=== PATIENT | female | born 1970 | race Caucasian/White ===

== ENCOUNTER 2017-02-24 17:58 | Emergency (ER) | payer OTHER ==
[2017-02-24 18:28] VITALS: TEMP 97
[2017-02-24 20:13] LABS: Basophils % (A) 1 %; CH 32.5; CHCM 33.4; Eosinophils # (A) 0.2 k/uL (0-0.7); Eosinophils % (A) 3 %; HCT 41.6 % (34.0-46.0); HGB 14.1 gm/dL (11.4-16.0); Luc # (Auto) 0.22; Luc % (Auto) 3; Lymphocytes # (A) 2.9 k/uL (1.0-4.8); Lymphocytes % (A) 40 %; MCH 33.3 pg (25.0-35.0); MCV 97.8 fL (80.0-100.0); Mean Platelet Volume 6.9; Monocytes # (A) 0.3 k/uL (0-1.0); Monocytes % (A) 4 %; Neutrophils # (A) 3.7 k/uL (1.3-7.7); Neutrophils % (A) 51 %; RBC 4.25 m/uL (3.80-5.40); RDW 12.6 % (11.5-15.5); WBC 7.4 k/uL (3.8-10.6)
--- NOTE | 2017-02-24 20:18 | XR ---
EXAMINATION TYPE: XR chest 2V DATE OF EXAM: 02/24/2017 8:12 PM COMPARISON: 05/09/2016 HISTORY: Back pain and chest pain TECHNIQUE: Frontal and lateral views of the chest are obtained. FINDINGS: Heart and mediastinum are normal. Lungs are clear. Diaphragm is normal. Bony thorax appear s intact. IMPRESSION: Normal chest. No change.
[2017-02-24 20:21] VITALS: RESP 16
[2017-02-24 20:22] LABS: INR 1.1 (<1.1); Partial Thromboplastin Time 23.6 sec (22.0-30.0); Prothrombin Time 10.8 sec (9.0-12.0)
[2017-02-24 20:27] LABS: ALT 36 U/L (9-52); AST 54 U/L (14-36); Alkaline Phosphatase 93 U/L (38-126); Anion Gap 12 mmol/L; Blood Urea Nitrogen 12 mg/dL (7-17); Calcium 9.5 mg/dL (8.4-10.2); Carbon Dioxide 23 mmol/L (22-30); Chloride 104 mmol/L (98-107); Glucose 89 mg/dL (74-99); Magnesium 1.7 mg/dL (1.6-2.3); Non-African American GFR(MDRD) >60 (>60 ml/min/1.73 sqM); Potassium 4.4 mmol/L (3.5-5.1); Sodium 139 mmol/L (137-145); Total Bilirubin 0.6 mg/dL (0.2-1.3); Total Protein 8.3 g/dL (6.3-8.2)
[2017-02-24 20:59] VITALS: BP 158/77; PULSE 73
--- NOTE | 2017-02-24 21:08 | ED ---
General Adult HPI - General Chief complaint: Extremity Problem,Nontraumatic Stated complaint: Shoulder pain Time Seen by Provider: 02/24/17 19:35 Source: patient Mode of arrival: ambulatory Limitations: no limitations - History of Present Illness Initial comments: Patient complains of back and chest pain. Her symptoms began a few hours ago. Nothing makes it better or worse. Pain is in the left side. She has no lightheadedness or dizziness. She has no nausea or vomiting. She has no diaphoresis. She denies any recent illnesses or sick contacts. Nothing makes her symptoms better or worse. She wasn't doing anything when she began to feel this way. She has no neck pain or stiffness. - Related Data Home Medications Medication Instructions Recorded Confirmed Tiotropium 18 Mcg/Puff [Spiriva] 1 cap INHALATION RT-DAILY 02/16/15 02/24/17 Albuterol Inhaler [Ventolin Hfa 2 puff INHALATION RT-QID PRN 05/09/16 02/24/17 Inhaler] [id number] Inhibitor 1 injection IV TU 02/24/17 02/24/17 [Prolastin C] Ipratropium-Albuterol Nebulize 3 ml INHALATION RT-Q4H PRN 02/24/17 02/24/17 [Duoneb 0.5 mg-3 mg/3 ml Soln] Levothyroxine Sodium [Synthroid] 300 mcg PO DAILY 02/24/17 02/24/17 Allergies Allergy/AdvReac Type Severity Reaction Status Date / Time ciprofloxacin [From Cipro] AdvReac Rash/Hives Verified 02/24/17 19:51 ciprofloxacin HCl AdvReac Rash/Hives Verified 02/24/17 19:51 [From Cipro] Review of Systems ROS Statement: Those systems with pertinent positive or pertinent negative responses have been documented in the HPI. ROS Other: All systems not noted in ROS Statement are negative. Past Medical History Past Medical History: COPD, Thyroid Disorder Additional Past Medical History / Comment(s): alpha 1 anti-trypson deficency History of Any Multi-Drug Resistant Organisms: None Reported Additional Past Surgical History / Comment(s): vericose veins Past Psychological History: No Psychological Hx Reported Smoking Status: Current every day smoker Past Alcohol Use History: None Reported Past Drug Use History: None Reported General Exam Limitations: no limitations General appearance: alert, in no apparent distress Head exam: Present: atraumatic, normocephalic, normal inspection Eye exam: Present: normal appearance, PERRL, EOMI. Absent: scleral icterus, conjunctival injection, periorbital swelling ENT exam: Present: normal exam, mucous membranes moist Neck exam: Present: normal inspection. Absent: tenderness, meningismus, lymphadenopathy Respiratory exam: Present: normal lung sounds bilaterally. Absent: respiratory distress, wheezes, rales, rhonchi, stridor Cardiovascular Exam: Present: regular rate, normal rhythm, normal heart sounds. Absent: systolic murmur, diastolic murmur, rubs, gallop, clicks GI/Abdominal exam: Present: soft, normal bowel sounds. Absent: distended, tenderness, guarding, rebound, rigid Extremities exam: Present: normal inspection, full ROM, normal capillary refill. Absent: tenderness, pedal edema, joint swelling, calf tenderness Back exam: Present: normal inspection Neurological exam: Present: alert, oriented X3, CN II-XII intact Psychiatric exam: Present: normal affect, normal mood Skin exam: Present: warm, dry, intact, normal color. Absent: rash Course Vital Signs 02/24/17 02/24/17 02/24/17 18:23 20:01 20:19 Temperature 97.0 F L Pulse Rate 69 62 Respiratory 18 18 16 Rate Blood Pressure 175/78 166/73 O2 Sat by Pulse 99 100 Oximetry 02/24/17 20:58 Temperature Pulse Rate 73 Respiratory 16 Rate Blood Pressure 158/77 O2 Sat by Pulse 99 Oximetry EKG Findings - EKG Comments: EKG Findings:: Twelve-lead EKG is obtained, interpreted by me showing ventricular rate 65 bpm, normal NE interval and QRS complex is, no ST elevation or depression, interpreted by me as normal sinus rhythm. Medical Decision Making - Medical Decision Making Patient complains of left-sided chest and back pain. Her exam is unremarkable. EKG is normal. Laboratory studies are normal. Chest x-ray is normal. I cannot find evidence of an acute emergency condition. She has no risk factors for pulmonary M Khan. Vital signs are normal. She is stable for outpatient follow-up. - Lab Data Result diagrams: 02/24/17 19:55 02/24/17 19:55 Lab Results 02/24/17 02/24/17 02/24/17 Range/Units 19:55 19:55 19:55 WBC 7.4 (3.8-10.6) k/uL RBC 4.25 (3.80-5.40) m/uL Hgb 14.1 (11.4-16.0) gm/dL Hct 41.6 (34.0-46.0) % MCV 97.8 (80.0-100.0) fL MCH 33.3 (25.0-35.0) pg MCHC 34.0 (31.0-37.0) g/dL RDW 12.6 (11.5-15.5) % Plt Count 181 (150-450) k/uL Neutrophils % 51 % Lymphocytes % 40 % Monocytes % 4 % Eosinophils % 3 % Basophils % 1 % Neutrophils # 3.7 (1.3-7.7) k/uL Lymphocytes # 2.9 (1.0-4.8) k/uL Monocytes # 0.3 (0-1.0) k/uL Eosinophils # 0.2 (0-0.7) k/uL Basophils # 0.0 (0-0.2) k/uL PT (9.0-12.0) sec INR (<1.1) APTT (22.0-30.0) sec Sodium 139 (137-145) mmol/L Potassium 4.4 (3.5-5.1) mmol/L Chloride 104 (98-107) mmol/L Carbon Dioxide 23 (22-30) mmol/L Anion Gap 12 mmol/L BUN 12 (7-17) mg/dL Creatinine 0.66 (0.52-1.04) mg/dL Est GFR (MDRD) Af Amer >60 (>60 ml/min/1.73 sqM) Est GFR (MDRD) Non-Af >60 (>60 ml/min/1.73 sqM) Glucose 89 (74-99) mg/dL Calcium 9.5 (8.4-10.2) mg/dL Magnesium 1.7 (1.6-2.3) mg/dL Total Bilirubin 0.6 (0.2-1.3) mg/dL AST 54 H (14-36) U/L ALT 36 (9-52) U/L Alkaline Phosphatase 93 (38-126) U/L Troponin I (0.000-0.034) ng/mL NT-Pro-B Natriuret Pep 225 pg/mL Total Protein 8.3 H (6.3-8.2) g/dL Albumin 4.2 (3.5-5.0) g/dL Lipase 113 (23-300) U/L 02/24/17 02/24/17 Range/Units 19:55 19:55 WBC (3.8-10.6) k/uL RBC (3.80-5.40) m/uL Hgb (11.4-16.0) gm/dL Hct (34.0-46.0) % MCV (80.0-100.0) fL MCH (25.0-35.0) pg MCHC (31.0-37.0) g/dL RDW (11.5-15.5) % Plt Count (150-450) k/uL Neutrophils % % Lymphocytes % % Monocytes % % Eosinophils % % Basophils % % Neutrophils # (1.3-7.7) k/uL Lymphocytes # (1.0-4.8) k/uL Monocytes # (0-1.0) k/uL Eosinophils # (0-0.7) k/uL Basophils # (0-0.2) k/uL PT 10.8 (9.0-12.0) sec INR 1.1 (<1.1) APTT 23.6 (22.0-30.0) sec Sodium (137-145) mmol/L Potassium (3.5-5.1) mmol/L Chloride (98-107) mmol/L Carbon Dioxide (22-30) mmol/L Anion Gap mmol/L BUN (7-17) mg/dL Creatinine (0.52-1.04) mg/dL Est GFR (MDRD) Af Amer (>60 ml/min/1.73 sqM) Est GFR (MDRD) Non-Af (>60 ml/min/1.73 sqM) Glucose (74-99) mg/dL Calcium (8.4-10.2) mg/dL Magnesium (1.6-2.3) mg/dL Total Bilirubin (0.2-1.3) mg/dL AST (14-36) U/L ALT (9-52) U/L Alkaline Phosphatase (38-126) U/L Troponin I <0.012 (0.000-0.034) ng/mL NT-Pro-B Natriuret Pep pg/mL Total Protein (6.3-8.2) g/dL Albumin (3.5-5.0) g/dL Lipase (23-300) U/L Disposition Clinical Impression: Back pain, Chest pain Disposition: HOME SELF-CARE Condition: Good Instructions: Chest Pain (ED) Time of Disposition: 21:07
== END 2017-02-24 21:20 | disposition home or self-care (01) ==
LOC: EC 17:58
DX: M54.9 Dorsalgia, unspecified (principal); R07.9 Chest pain, unspecified; J44.9 Chronic obstructive pulmonary disease, unspecified; E07.9 Disorder of thyroid, unspecified; Z79.899 Other long term (current) drug therapy; Z88.1 Allergy status to other antibiotic agents; F17.200 Nicotine dependence, unspecified, uncomplicated
CPT/HCPCS: 36415; 71020; 80053; 83690; 83735; 83880; 84484; 85025; 85610; 85730; 93005; 99284

== ENCOUNTER → 2019-10-10 | Outpatient (CLI) | payer OTHER ==
--- NOTE | 2019-10-10 13:25 | XR ---
Right knee HISTORY: Right knee pain 3 views the right knee, comparison 03/15/2010 Tricompartmental marginal spurring. Alignment is maintained, bone mineralization is normal. No fractu re or dislocation. Suprapatellar increased density compatible joint effusion. Airspace loss is greate st at the patellofemoral joint. IMPRESSION: Osteoarthritis has progressed in the interval.
== END | disposition home or self-care (01) ==
LOC: LABWHC1 13:00
PROVIDERS: ATTEND Family Medicine
DX: M17.11 Unilateral primary osteoarthritis, right knee (principal)

== ENCOUNTER → 2022-02-10 | Outpatient (CLI) | payer OTHER ==
--- NOTE | 2022-02-10 12:35 | XR ---
EXAMINATION TYPE: XR chest 2V DATE OF EXAM: 02/10/2022 COMPARISON: Chest x-ray 02/24/2017 HISTORY: COPD TECHNIQUE: Frontal and lateral views of the chest are obtained. FINDINGS: There is no focal air space opacity, pleural effusion, or pneumothorax seen. The cardiac silhouette size is within normal limits. Costophrenic angle is not included on exam on the right. T he osseous structures are intact, there is thoracic spondylosis. IMPRESSION: No acute cardiopulmonary process.
== END | disposition home or self-care (01) ==
LOC: RADXRWHC 11:17
PROVIDERS: ATTEND Family Medicine
DX: J44.1 Chronic obstructive pulmonary disease with (acute) exacerbation (principal)
CPT/HCPCS: 71046

== ENCOUNTER 2022-08-13 11:37 | Emergency (ER) | payer OTHER ==
[2022-08-13 11:53] VITALS: BP 145/67; PULSE 60; RESP 16; TEMP 98
--- NOTE | 2022-08-13 12:36 | ED ---
Extremity Problem HPI - General Chief complaint: Extremity Problem,Nontraumatic Stated complaint: poss DVT lt leg Time Seen by Provider: 08/13/22 12:07 Source: patient, RN notes reviewed Mode of arrival: ambulatory Limitations: no limitations - History of Present Illness Initial comments: This is a 51-year-old female who presents to the emergency department for swelling and redness to the left calf. She has a past medical history of varicose veins. Yesterday she had a small red bump on the left calf and today it doubled in size. She was evaluated at urgent care and told to come to the emergency department for possible blood clot. Denies any history of DVTs. Does not have any pain when walking, states that the area is only painful to the touc h. Denies the possibility of being bitten by anything. Denies any chest pain or shortness of breath. Denies any fevers, chills, sore throat, cough, dyspnea, chest pain, palpitations, abdominal pain, nausea, vomiting, diarrhea, back pain, or headaches. MD Complaint: extremity pain, extremity swelling Onset/Timin -: days(s) Location: left, lower extremity Associated Symptoms: denies other symptoms - Related Data Home Medications Medication Instructions Recorded Confirmed Tiotropium 18 Mcg/Puff [Spiriva] 1 cap INHALATION RT-DAILY 02/16/15 01/25/18 Albuterol Inhaler [Ventolin Hfa 2 puff INHALATION RT-QID PRN 05/09/16 01/25/18 Inhaler] [id number]-[id number] Inhibitor 1 injection IV TU 02/24/17 01/25/18 [Prolastin C] Ipratropium-Albuterol Nebulize 3 ml INHALATION RT-Q4H PRN 02/24/17 01/25/18 [Duoneb 0.5 mg-3 mg/3 ml Soln] Levothyroxine Sodium [Synthroid] 300 mcg PO DAILY 02/24/17 01/25/18 Chlorthalidone [Hygroten] 50 mg PO DAILY 06/06/17 01/25/18 lisinopriL [Prinivil] 10 mg PO DAILY 01/04/18 01/25/18 Allergies Allergy/AdvReac Type Severity Reaction Status Date / Time ciprofloxacin [From Cipro] AdvReac Rash/Hives Verified 08/13/22 11:53 ciprofloxacin HCl AdvReac Rash/Hives Verified 01/25/18 08:32 [From Cipro] Review of Systems ROS Statement: Those systems with pertinent positive or pertinent negative responses have been documented in the HPI. ROS Other: All systems not noted in ROS Statement are negative. Past Medical History Past Medical History: COPD, Thyroid Disorder Additional Past Medical History / Comment(s): alpha 1 anti-trypson deficency History of Any Multi-Drug Resistant Organisms: None Reported Past Surgical History: Tubal Ligation Additional Past Surgical History / Comment(s): vericose veins Past Psychological History: No Psychological Hx Reported Past Alcohol Use History: None Reported Past Drug Use History: None Reported General Exam Limitations: no limitations General appearance: alert, in no apparent distress Head exam: Present: atraumatic, normocephalic, normal inspection Respiratory exam: Present: normal lung sounds bilaterally. Absent: respiratory distress, wheezes, rales, rhonchi, stridor Cardiovascular Exam: Present: regular rate, normal rhythm, normal heart sounds. Absent: systolic murmur, diastolic murmur, rubs, gallop, clicks Extremities exam: Present: other (8 x 8 cm indurated area on the lateral aspect of the right calf. Tenderness to direct palpation. Multiple varicose veins throughout both lower extremities.) Neurological exam: Present: alert, oriented X3, CN II-XII intact Psychiatric exam: Present: normal affect, normal mood Course Vital Signs 08/13/22 11:49 Temperature 98 F Pulse Rate 60 Respiratory 16 Rate Blood Pressure 145/67 O2 Sat by Pulse 98 Oximetry Medical Decision Making - Medical Decision Making This is a 51-year-old female who presents emergency department for an area of redness and swelling to the left lower extremity. I spoke with the cath lab radiology technician who said that she will see if this is in an area of vascularity, and if it is not, she will change the ultrasound to one that is nonvascular. Duplex ultrasound revealed thrombosed varicose veins in the affected area. This is 5 cm from the lesser saphenous junction and no anticoagulation is indicated. Patient is instructed to apply warm compresses, keep the area compressed with something like an Shayan wrap, elevate the leg, and take ibuprofen and Tylenol. Return precautions reviewed in depth, the patient is instructed to return to the emergency department with any new, worsening, or concerning symptoms. Patient verbalized understanding. This case was discussed in detail with the attending ED physician. Presentation, findings, and treatment plan discussed in detail as well. - Radiology Data Radiology results: report reviewed, image reviewed Disposition Clinical Impression: Thrombophlebitis of leg, left, superficial Disposition: HOME SELF-CARE Instructions (If sedation given, give patient instructions): Superficial Thrombophlebitis (ED) Additional Instructions: Return to the emergency department with any new, worsening, or concerning symptoms. Apply an Shayan wrap to keep the area compressed. Elevate the leg whenever you are sedentary. Alternate with ibuprofen and Tylenol and apply warm compresses. Is patient prescribed a controlled substance at d/c from ED?: No Referrals: Jamie Munguia MD [Primary Care Provider] - 1-2 days
--- NOTE | 2022-08-13 13:10 | US ---
EXAMINATION TYPE: US venous doppler duplex LE LT DATE OF EXAM: 08/13/2022 12:44 PM COMPARISON: NONE CLINICAL HISTORY: rule out dvt. red palpable on lateral left leg x 1 day, h/o large, multiple varicos e veins SIDE PERFORMED: Left TECHNIQUE: The lower extremity deep venous system is examined utilizing real time linear array sonog justin with graded compression, doppler sonography and color-flow sonography. VESSELS IMAGED: Common Femoral Vein Deep Femoral Vein Greater Saphenous Vein * Femoral Vein Popliteal Vein Small Saphenous Vein * Proximal Calf Veins (* superficial vessels) Left Leg: Negative for DVT thrombosed varicose veins in lateral calf at area of concern, no flow, do not compress, over 5cm from lesser saphenous junction IMPRESSION: DVT as noted.
== END 2022-08-13 13:39 | disposition home or self-care (01) ==
LOC: EC 11:37
DX: I80.02 Phlebitis and thrombophlebitis of superficial vessels of left lower extremity (principal); J44.9 Chronic obstructive pulmonary disease, unspecified; E07.9 Disorder of thyroid, unspecified; Z79.890 Hormone replacement therapy; Z79.51 Long term (current) use of inhaled steroids; Z88.1 Allergy status to other antibiotic agents
CPT/HCPCS: 99283

== ENCOUNTER 2024-06-11 20:50 | Emergency (ER) | payer BC, OTHER ==
[2024-06-11 20:55] VITALS: BP 177/83; PULSE 87; RESP 16; TEMP 98.1
--- NOTE | 2024-06-11 20:59 | ED ---
Lower Extremity Injury HPI - General Chief Complaint: Extremity Injury, Lower Stated Complaint: R Knee Pain Time Seen by Provider: 06/11/24 20:58 Source: patient, family, RN notes reviewed Mode of arrival: ambulatory Limitations: no limitations - History of Present Illness Initial Comments: 53-year-old female presented to the ER with a chief complaint of right knee swelling. Patient states around 1030 this morning her right knee "locked up". She states the posterior aspect of her knee is extremely tight and feels like a tension. She states all day it has felt this way. She reports she was able to work approximately 6 hours on her feet. She states it is increase in pain with movement of her right knee. Denies any known injuries or traumas. No history of DVTs but does has history of superficial thrombophlebitis. No current blood thinner use. Denies any fevers or chills. - Related Data Home Medications Medication Instructions Recorded Confirmed Tiotropium 18 Mcg/Puff [Spiriva] 1 cap INHALATION RT-DAILY 02/16/15 01/25/18 Albuterol Inhaler [Ventolin Hfa 2 puff INHALATION RT-QID PRN 05/09/16 01/25/18 Inhaler] [id number]-3-Dwwuulwghi Inhibitor 1 injection IV TU 02/24/17 01/25/18 [Prolastin C] Ipratropium-Albuterol Nebulize 3 ml INHALATION RT-Q4H PRN 02/24/17 01/25/18 [Duoneb 0.5 mg-3 mg/3 ml Soln] Levothyroxine Sodium [Synthroid] 300 mcg PO DAILY 02/24/17 01/25/18 Chlorthalidone [Hygroten] 50 mg PO DAILY 06/06/17 01/25/18 lisinopriL [Prinivil] 10 mg PO DAILY 01/04/18 01/25/18 Previous Rx's Medication Instructions Recorded Cyclobenzaprine [Flexeril] 10 mg PO TID PRN #15 tab 06/11/24 Allergies Allergy/AdvReac Type Severity Reaction Status Date / Time ciprofloxacin [From Cipro] AdvReac Rash/Hives Verified 08/13/22 11:53 ciprofloxacin HCl AdvReac Rash/Hives Verified 01/25/18 08:32 [From Cipro] Review of Systems ROS Statement: Those systems with pertinent positive or pertinent negative responses have been documented in the HPI. ROS Other: All systems not noted in ROS Statement are negative. Past Medical History Past Medical History: COPD, Osteoarthritis (OA), Thyroid Disorder Additional Past Medical History / Comment(s): alpha 1 anti-trypson deficency History of Any Multi-Drug Resistant Organisms: None Reported Past Surgical History: Tubal Ligation Additional Past Surgical History / Comment(s): vericose veins Past Psychological History: No Psychological Hx Reported Past Alcohol Use History: None Reported Past Drug Use History: None Reported General Exam - General Exam Comments Initial Comments: Visual Physical Exam Vital signs reviewed General: Well-appearing, nontoxic, no acute distress. Head: Normocephalic, atraumatic Eyes: PERRLA, EOMI ENT: Airway patent Chest: Nonlabored breathing Skin: No visual rash, normal skin tone Neuro: Alert and oriented 3 Musculoskeletal: No gross abnormalities Limitations: no limitations General appearance: alert, in no apparent distress Respiratory exam: Present: normal lung sounds bilaterally. Absent: respiratory distress, wheezes, rales, rhonchi, stridor Cardiovascular Exam: Present: regular rate, normal rhythm, normal heart sounds. Absent: systolic murmur, diastolic murmur, rubs, gallop, clicks Extremities exam: Present: normal inspection, full ROM, normal capillary refill, other (Tightness to distal hamstring insertion. 2+ dorsalis pedis pulse. Nonpitting edema to right lower extremity. Sensation intact. Patient able to ambulate). Absent: tenderness, pedal edema, joint swelling, calf tenderness Course Vital Signs 06/11/24 20:51 Temperature 98.1 F Pulse Rate 87 Respiratory 16 Rate Blood Pressure 177/83 O2 Sat by Pulse 97 Oximetry Medical Decision Making - Medical Decision Making I performed the quick note portion of this chart. Electronically signed by Jose David Suarez PA-C Was pt. sent in by a medical professional or institution ([facility], J2EE ARCHITECT, urgent care, hospital, or group home...) When possible be specific @ -No Did you speak to anyone other than the patient for history (EMS, parent, family, police, friend...)? What history was obtained from this source @ -No Did you review nursing and triage notes (agree or disagree)? Why? @ -I reviewed and agree with nursing and triage notes Were old charts reviewed (outside hosp., previous admission, EMS record, old EKG, old radiological studies, urgent care reports/EKG's, group home records)? Report findings @ -No old charts were reviewed Differential Diagnosis (chest pain, altered mental status, abdominal pain women, abdominal pain men, vaginal bleeding, weakness, fever, dyspnea, syncope, headache, dizziness, GI bleed, back pain, seizure, CVA, palpatations, mental health, musculoskeletal)? @ -Differential Musculoskeletal: Muscular strain, contusion, ligament sprain, fracture, arthritis, septic arthritis, bursitis, cellulitis, muscle spasm, nerve compression, DVT, arterial occlusion, herpes zoster, electrolyte abnormality, tumor.... This is not meant to be in all inclusive list EKG interpreted by me (3pts min.). @ -None X-rays interpreted by me (1pt min.). @ -None done CT interpreted by me (1pt min.). @ -None done U/S interpreted by me (1pt. min.). @-Ultrasound venous Doppler right lower extremity negative for acute DVT. What testing was considered but not performed or refused? (CT, X-rays, U/S, labs)? Why? @ -None What meds were considered but not given or refused? Why? @ -None Did you discuss the management of the patient with other professionals (professionals i.e. , PA, J2EE ARCHITECT, lab, RT, psych nurse, social and political studies professor, chopper feeder, teacher, safety officer, casey saw operator)? Give summary @ -No Was smoking cessation discussed for >3mins.? @ -No Was critical care preformed (if so, how long)? @ -No Were there social determinants of health that impacted care today? How? (Homelessness, low income, unemployed, alcoholism, drug addiction, transportation, low edu. Level, literacy, decrease access to med. care, usp, rehab)? @ -No Was there de-escalation of care discussed even if they declined (Discuss DNR or withdrawal of care, Hospice)? DNR status @ -No What co-morbidities impacted this encounter? (DM, HTN, Smoking, COPD, CAD, Cancer, CVA, ARF, Chemo, Hep., AIDS, mental health diagnosis, sleep apnea, morbid obesity)? @ -None Was patient admitted / discharged? Hospital course, mention meds given and route, prescriptions, significant lab abnormalities, going to OR and other pertinent info. @ -Discharge. 53-year-old female presented to the ER with a chief complaint of right knee swelling. History and physical exam completed. Vitals stable. Exam remarkable for a tight distal hamstring. No bruising, erythema, rashes or wounds to posterior knee. Nonpitting edema to right lower extremity. Left lower extremity neurovascular intact. Ultrasound obtained to rule out DVT negative. Pain believed to be musculoskeletal in nature. Patient prescribed Flexeril, first dose in the ER. Advise close follow-up with orthopedics, referral given. Return parameters discussed. Patient discharged in stable condition. Patient verbally expressed understanding agree with care plan. Case discussed with ED attending, Dr. Vallecillo. Undiagnosed new problem with uncertain prognosis? @ -No Drug Therapy requiring intensive monitoring for toxicity (Heparin, Nitro, Insulin, Cardizem)? @ -No Were any procedures done? @ -No Diagnosis/symptom? @ -Muscle spasm Acute, or Chronic, or Acute on Chronic? @ -Acute Uncomplicated (without systemic symptoms) or Complicated (systemic symptoms)? @ -Uncomplicated Side effects of treatment? @ -No Exacerbation, Progression, or Severe Exacerbation? @ -No Poses a threat to life or bodily function? How? (Chest pain, [place], [place], pneumonia, PE, COPD, DKA, ARF, appy, cholecystitis, CVA, Diverticulitis, Homicidal, Suicidal, threat to staff... and all critical care pts) @ -No - Radiology Data Radiology results: report reviewed, image reviewed Disposition Clinical Impression: Muscle spasm Disposition: HOME SELF-CARE Condition: Stable Instructions (If sedation given, give patient instructions): Muscle Spasm (ED) Additional Instructions: Please follow-up with orthopedics. Return to the ER for any new or worsening symptoms. Prescriptions: Cyclobenzaprine [Flexeril] 10 mg PO TID PRN #15 tab PRN Reason: Muscle Spasm Is patient prescribed a controlled substance at d/c from ED?: No Referrals: Hong Martinez DO [Primary Care Provider] - 1-2 days Michael Chapa DO [Doctor of Osteopathic Medicine] - 1-2 days Time of Disposition: 22:22
--- NOTE | 2024-06-11 21:58 | US ---
EXAMINATION TYPE: US venous doppler duplex LE RT DATE OF EXAM: 06/11/2024 9:31 PM COMPARISON: NONE CLINICAL INDICATION: Female, 53 years old with history of right leg swelling; Patient states right le g pain and swelling at knee. Patient has arthritis and varicose veins. Patient has hx of superficial clot on the left leg. Takes aspirin. SIDE PERFORMED: Right TECHNIQUE: The lower extremity deep venous system is examined utilizing real time linear array sonog justin with graded compression, doppler sonography and color-flow sonography. VESSELS IMAGED: Common Femoral Vein Deep Femoral Vein Greater Saphenous Vein * Femoral Vein Popliteal Vein Small Saphenous Vein * Proximal Calf Veins (* superficial vessels) Right Leg: Appears negative for DVT IMPRESSION: No evidence for DVT within the right lower extremity imaged from the groin to the upper calf.
[2024-06-11] MEDS: CYCLOBENZAPRINE 10 MG TAB PO STA (22:55)
== END 2024-06-11 23:03 | disposition home or self-care (01) ==
LOC: EC 20:50
DX: M62.838 Other muscle spasm (principal); Z88.1 Allergy status to other antibiotic agents
CPT/HCPCS: 99283